=== PATIENT | female | born 1990 | race African-American/Black ===

== ENCOUNTER 2017-04-01 13:50 | Emergency (ER) | payer MEDICAID ==
[~2017-04-01] VITALS: Ht 167.6 cm; Wt 57.6 kg
--- NOTE | 2017-04-01 14:54 | Emergency Room Report ---
History of Present Illness General Chief Complaint: Upper Respiratory Illness Source: Patient Present Illness HPI 26-year-old female presents to the emergency department complaining of x2 weeks in addition to anterior chest pain exacerbated upon coughing patient was examined at [facility] 2 weeks ago had EKG performed which was normal and was discharged without prescriptions. Patient reports that her pain has worsened and she is coughing more frequently and is now productive. Pt. denies pain at this time. She denies fevers or chills, reports body aches and fatigue. Denies sore throat, ear pain, high fevers, neck pain/stiffness, irritability, photophobia dehydration, N/V/D. Denies Palpitations, LOC, AMS, seizures, paresthesias, or changes in Hearing or vision, no Sudden severe HANNA. Allergies: Coded Allergies: No Known Allergies (Unverified , 04/01/17) Patient History Past Medical History: see triage record Past Surgical History: none Pertinent Family History: none Last Menstrual Period: 03/26/17 Now: No Reviewed Nursing Documentation: PMH: Agreed, PSxH: Agreed Review of Systems All Other Systems: negative except mentioned in HPI Physical Exam Vital Signs Date Time Temp Pulse Resp B/P (MAP) Pulse Ox O2 Delivery O2 Flow Rate FiO2 04/01/17 14:06 98.8 82 20 107/70 99 Room Air Sp02 EP Interpretation: reviewed, normal General Appearance: no apparent distress, alert, GCS 15, non-toxic Head: normocephalic, atraumatic ENT: hearing grossly normal, normal voice Neck: full range of motion Respiratory: lungs clear, normal breath sounds, no respiratory distress, no wheezing, speaking full sentences Cardiovascular #1: regular rate, rhythm Musculoskeletal: back normal, gait/station normal, normal range of motion, non- tender Neurologic: alert, oriented x3, responsive, motor strength/tone normal, sensory intact, speech normal, grossly normal Psychiatric: judgement/insight normal Skin: normal color, no rash, warm/dry, well hydrated Lymphatic: no adenopathy Medical Decision Making PA Attestation Dr. Londono is my supervising Physician whom patient management has been discussed with. Diagnostic Impression: Primary Impression: Upper respiratory infection Qualified Codes: J06.9 - Acute upper respiratory infection, unspecified Additional Impression: Chest wall pain ER Course 26-year-old female presents to the emergency department complaining of x2 weeks in addition to anterior chest pain exacerbated upon coughing patient was examined at [facility] 2 weeks ago had EKG performed which was normal and was discharged without prescriptions. Patient reports that her pain has worsened and she is coughing more frequently and is now productive. Pt. denies pain at this time. She denies fevers or chills, reports body aches and fatigue. Denies sore throat, ear pain, high fevers, neck pain/stiffness, irritability, photophobia dehydration, N/V/D. Denies Palpitations, LOC, AMS, seizures, paresthesias, or changes in Hearing or vision, no Sudden severe HANNA. Ddx considered but are not limited to URI, pneumonia, PE, strep pharyngitis, meningitis, bronchitis, pericarditis just to name a few. Vital signs: Pt. is afebrile, the remaining VS are WNL H&PE are most consistent with URI- no meningeal signs, oropharynx is not involved, no evidence of bacterial infection at this time. ORDERS: - EK BPM NSR - no acute ST changes reviewed by Dr. Londono. His interpretation was scribed by MAI Love : -CXR: No consolidation, effusion, pneumothorax or acute cardiopulmonary findings, Normal Impression- per soft read in ED by MAI Love, my supervising physician has reviewed and agrees with my impression. ED INTERVENTIONS: None required at this time. --PT. EDUCATION: Discussed antibiotic resistance with inappropriate prescribing of antibiotics for viral illnesses. Discussed signs and symptoms to indicate viral illness versus bacterial illness. DISCHARGE: At this time pt. is stable for d/c to home. Will provide printed patient care instructions, and any necessary prescriptions. Care plan and follow up instructions have been discussed with the patient prior to discharge. EKG Diagnostic Results EP Interpretation: Dr. Londono Rate: normal Rhythm: NSR ST Segments: no acute changes ASA given to the pt in ED: No PA Scribe Text This interpretation was scribed by MAI Love Chest X-Ray Diagnostic Results Chest X-Ray Diagnostic Results : Chest X-Ray Ordered: Yes # of Views/Limited/Complete: 1 View Indication: Other - productive cough x 2 weeks. EP Interpretation: Yes PA Xray: Interpretation reviewed, by supervising MD, and agrees with findings. Interpretation: no consolidation, no effusion, no pneumothorax, no acute cardiopulmonary disease Impression: No acute disease Electronically Signed by: Liv Love PA-C Last Vital Signs Date Time Temp Pulse Resp B/P (MAP) Pulse Ox O2 Delivery O2 Flow Rate FiO2 04/01/17 14:12 82 20 Room Air 04/01/17 14:06 98.8 107/70 99 Disposition: HOME, SELF-CARE Condition: Stable Scripts Guaifenesin (Guaifenesin) 1,200 Mg Tab.er.12h 1200 MG PO BID, #20 TAB Prov: Liv Love 04/01/17 Benzonatate* (TESSALON PERLE*) 100 Mg Capsule 100 MG ORAL THREE TIMES A DAY, #20 PERLE Prov: Liv Love 04/01/17 Codeine/Promethazine Hcl* (PROMETHAZINE-CODEINE SYRUP*) 118 Ml Syrup 5 ML ORAL Q6H Y for For Cough, #120 ML 0 Refills Prov: Liv Love 04/01/17 Ibuprofen* (MOTRIN*) 600 Mg Tablet 600 MG ORAL THREE TIMES A DAY, #30 TAB 0 Refills Prov: Liv Love 04/01/17 Patient Instructions: Upper Respiratory Infection, Adult Additional Instructions: Take medications as directed. Follow up with a Primary Care Provider in 3-5 days, even if your symptoms have resolved. --Please review list of primary care clinics, if you do not already have a primary care provider Return sooner to ED if new symptoms occur, or current symptoms become worse. Do not drink alcohol, drive, or operate heavy machinery while taking Cough Syrup as this may cause drowsiness. - Please note that this Emergency Department Report was dictated using [employer] pocket trimmer technology software, occasionally this can lead to erroneous entry secondary to interpretation by the dictation equipment. Liv Love Apr 01, 2017 14:54
[2017-04-01] MEDS ORDERED: TESSALON PERLE100 MG ORAL (15:07)
[2017-04-01] MEDS ORDERED: PROMETHAZINE-C118 M1 ORAL (15:07)
[2017-04-01] MEDS ORDERED: GUAIFENESIN1200 MG PO (15:07)
[2017-04-01] MEDS ORDERED: IBUPROFEN600 MG ORAL (15:07)
[2017-04-01 15:25] VITALS: BP 112/75
--- NOTE | 2017-04-03 18:29 | Cardiology Report ---
APPROVED REPORT EKG Measurement Heart [id number] Normal sinus rhythm Nonspecific T wave abnormality Abnormal ECG
== END 2017-04-01 15:35 | disposition home or self-care (01) ==
LOC: EMR 14:20
DX: J06.9 Acute upper respiratory infection, unspecified (principal); R07.89 Other chest pain
CPT/HCPCS: 93005; 99284